=== PATIENT | female | born 1980 | race Caucasian/White ===

== ENCOUNTER → 2020-07-04 11:20 | Outpatient (CLI) | payer OTHER, SELFPAY ==
--- NOTE | ~2020-07-04 | US_ITS ---
EXAMINATION: US venous doppler [facility] DATE: 07/04/2020 11:40 INDICATION: Left lower limb pain TECHNIQUE: Grayscale ultrasound images without and with compression and Doppler ultrasound images of the left lower extremity veins were obtained. COMPARISON: None. FINDINGS: The visualized portions of left common femoral vein, profunda (deep) femoral vein, femoral vein, popl iteal vein, peroneal veins, posterior tibial veins, gastrocnemius vein and greater saphenous vein out flow are patent. IMPRESSION: 1. No deep venous thrombosis in the left lower limb. Reviewed, dictated and finalized at location A.
== END ==
PROVIDERS: Visit Provider Clinical Nurse Specialist
DX: M79.669 Pain in unspecified lower leg (principal)
CPT/HCPCS: 93971

== ENCOUNTER 2023-05-06 14:34 | Outpatient (CLI) | payer OTHER, SELFPAY ==
--- NOTE | ~2023-05-06 | MM_ITS ---
EXAMINATION: MM scrn tuan implant BI w camila HISTORY: Screening mammogram TECHNIQUE: Craniocaudal and mediolateral oblique 3-D tomosynthesis images with implant displacement a nd synthetic 2-D images were generated. Craniocaudal and mediolateral oblique views of the breasts wi thout implant displacement were obtained using full field digital mammography. CAD analysis was submi tted and interpreted. COMPARISON: 06/14/2016 diagnostic left mammogram and left breast ultrasound 06/09/2016 bilateral screening mammogram BREAST PARENCHYMAL COMPOSITION: The breasts are heterogeneously dense, which may obscure small masses . FINDINGS: Status post bilateral augmentation mammoplasty since 06/14/2016. There is no evidence of gaye picious mass, calcification, or architectural distortion to suggest malignancy in either breast. Ther e has been no suspicious interval change. IMPRESSION: 1. Status post bilateral augmentation mammoplasty since 06/14/2016. No mammographic evidence of malign jos. 2. Recommend routine screening mammography in one year. BI-RADS Category 1: Negative Reviewed, dictated and finalized at location A. IMPRESSION: 1. Status post bilateral augmentation mammoplasty since 06/14/2016. No mammograp hic evidence of malignancy. 2. Recommend routine screening mammography in one year. BI-RADS Category 1: Negative
--- NOTE | ~2023-05-06 | CT_ITS ---
EXAMINATION: CT sinus wo con DATE: 05/06/2023 15:38 INDICATION: Acute recurrent sinusitis TECHNIQUE: Computed tomography (CT) of the sinuses was performed without intravenous contrast. The do se-length product was 335.32 mGy-cm. COMPARISON: CT dated 03/27/2015 FINDINGS: The ostiomeatal units are patent. Small air-fluid level present left maxillary sinus. Minim al mucosal thickening right maxillary sinus. No mucoperiosteal reaction. Rightward nasal septal devia tion. Mastoids are pneumatized. IMPRESSION: 1. Mild maxillary sinus disease. Reviewed, dictated and finalized at location []
== END 2023-05-06 14:35 | disposition home or self-care (01) ==
PROVIDERS: PCP Internal Medicine; Visit Provider Obstetrics & Gynecology
DX: Z12.31 Encounter for screening mammogram for malignant neoplasm of breast (principal); J01.90 Acute sinusitis, unspecified
CPT/HCPCS: 70486; 77063; 77067

== ENCOUNTER 2024-05-02 08:48 | Day surgery (SDC) | payer OTHER, SELFPAY ==
[2024-05-02] VITALS (8 sets, daily range): BP systolic 109–124; BP diastolic 59–97; PULSE 56–87; RESP 14–22; TEMP 36.4–37; O2SAT 94–100
[2024-05-02] MEDS: SCOPOLAMINE 1 MG PATCH 1 PATCH TRANSDERM (09:43)
--- NOTE | 2024-05-02 09:48 | P.OP_ITS ---
Procedure Note - Detailed Date of Procedure 05/02/24 Pre-op Diagnosis Dermatochalasis Post-op Diagnosis Same Procedure Performed Bilateral lower eyelid transconjunctival blepharoplasty with fat grafting Surgeon Akhil Aranda MD Anesthesia General Findings Fat grafting: Tensed site central abdomen Right lower lid: 3 cc Left lower lid: 3 cc Description of Procedure Preoperatively risks, benefits, alternatives were discussed in extensive detail. I want them to be very realistic about the risks involved as well as expectations. Discussed what we can and cannot improved. Limitations of this procedure. Alternative procedure as well as adjuvant procedures. This was a lengthy open-ended conversation discussing realistic expectations of outcome. Answered all of their questions to their satisfaction. Consent obtained. Taken to the operating room placed supine on the operating room table. Anesthesia provided by anesthesiology. Prepped and draped in a standard sterile fashion. 1% lidocaine and 0.25% Marcaine with epinephrine was used anesthetize locally with low volume of local to protect from distortion of structures. Eyes were irrigated with BSS. Tetracaine eyedrops placed. Corneal protectors also placed. Fat grafting donor site was also prepped and draped in a standard sterile fashion. Stab incision was made and tumescent was utilized for hemostasis. Suction lipectomy was completed with hand lipo and placed for gravity separation. Needle-tip cautery was used to incise just inferior to the tarsus and a transconjunctival lower lid blepharoplasty technique. The conjunctiva was retracted with a 5-0 nylon. I elevated in a preseptal fashion down to the level of the rim. At this point I entered the nasal, middle, and lateral compartments and removed only what was clearly excess adiposity. I verified strict hemostasis throughout. I verified that the inferior oblique was protected during this procedure. With gentle pressure on the globe I verified the contour the lower lids. Both lids proceeded in the same manner. Retraction suture and corneal protectors were removed. Copious irrigated again with BSS solution. Only the central fat from the syringes were used. These were passed through tulip microfat grafting connectors t0 2.4 then 1.2 microns. 18 gauge needle utilized to make stab incisions. Fat infiltrated on tulip fat grafting cannulas in multiple plans and passes based on preoperative planning and intraoperative observation. Patient was woken taken the PACU without difficulty. All instrument sponge counts were correct at the end the case. Estimated Blood Loss 10 Drains No Packing No Pathology None sent Complications No immediate complications Condition Stable Disposition PACU
--- NOTE | 2024-05-02 09:48 | WPDHPUPDATE1 ---
History and Physical Update Update Date/Time: 05/02/24 09:48 History and Physical has been reviewed, including an updated exam of the patient. There are NO changes in the patient's condition. Risks, benefits, and alternatives have been discussed and questions answered. Patient agrees to proceed with procedure.
--- NOTE | 2024-05-02 10:12 | WPDANESEPPF ---
Anes - Initial Pre Proc Eval Procedure: Operation Date: 05/02/24 10:30 Proposed Procedures p Bilateral Lower Eyelid Blepharoplasty with Fat Grafting - Akhil Aranda MD Date/Time: 05/02/24 10:12 Surgeon: Akhil Aranda MD Pre Op Diagnosis: Dermatochalasis Patient Data Age: 43 Gender: F Height: 1.57 m Weight: 64.05 kg Last Vital Signs Temp 37.0 C 05/02/24 09:25 Pulse 71 05/02/24 09:25 Resp 15 05/02/24 09:25 BP 111/59 L 05/02/24 09:25 Pulse Ox 99 05/02/24 09:25 O2 Del Method Room Air 05/02/24 09:25 Allergies Allergy/AdvReac Type Severity Reaction Status Date / Time No Known Allergies Allergy Verified 05/02/24 09:11 Home Medications Medication Instructions Recorded Confirmed Type hydrochlorothiazide 25 mg tablet 25 mg PO DAILY #30 tabs 09/01/23 05/02/24 Rx meloxicam 15 mg tablet 15 mg PO PRN PRN Muscle Pain 04/23/24 05/02/24 History semaglutide (weight loss) 0.5 0.5 mg (0.5 mL) subcut WEEKLY #2 mL 04/23/24 05/02/24 Rx mg/0.5 mL subcutaneous pen injector (Wegovy) Patient hx anesthesia problems: none Family hx anesthesia problems: none Results Review: All pre-operative results and documents have been reviewed as part of the pre-operative evaluation. [facility] Past Medical History Medical History Abnormal Pap smear of cervix 2008- 2009 Asthma Gestational hypertension Meniere disease Ovarian cyst 2010 Screening mammogram for breast cancer 06-09-2016 additional imaging of left breast - asymmetry on left breast- Dx mammogram - wnl Screening mammogram for breast cancer Surgical History Surgical History Delivery by section 03/16/12 primary c/s--severe PIH H/O sinus surgery 02/03/16 balloon sinuplasty History of colposcopy with cervical biopsy benign 10/28/08 benign Hx of breast implants, bilateral 09/11/16 Family History Family History Mother Breast cancer Father Diabetes mellitus Social History Social History Smoking status: Never smoker Second hand tobacco smoke exposure: No Alcohol intake: current Alcohol use details: occasional Substance use: current Substance use type: does not use Lack of Transportation: No Lack of Food: Never True Current Housing: I Have Housing Concerned About Future Housing: No Difficulty Paying Gas/Electric Bills: No Currently Unemployed: No Education: Master's Degree or Higher Difficulty w/ Childcare or Family Care: No Living arrangements: with family Occupation/Education: occupation Gender identity (if verbalized by the patient): Female Spiritual care concerns: No Anes - Eval Final PreProcedure Day of Procedure 05/02/24 10:12 Patient weight: normal Heart: regular rate and rhythm Lungs: clear to auscultation Airway: Mallampati scale class 1 Neurological: alert and oriented Last oral intake: >/= 8 hours ASA classification: I Emergent: no Anesthetic plan: proceed Anesthesia type and monitoring: general LMA and standard monitoring Results Review: All pre-operative results and documents have been reviewed as part of the pre-operative evaluation. Informed Consent: The patient's anesthetic plan and its attendant risks and benefits were discussed with the patient/family/POA. Questions were solicited and answers provided to the satisfaction of the patient/family/POA.
[2024-05-02] MEDS: LACTATED RINGERS 1,000 ML 30 ML IV CONT ×2 (10:23→12:17)
[2024-05-02] MEDS: ceFAZolin SODIUM 2 GM/20 ML SW SYRINGE IV PUSH (10:29)
[2024-05-02] MEDS: LIDO 1%/EPINEPHRINE 1:100,000 20 ML VIAL 5 ML INFILTRATE (12:08)
[2024-05-02] MEDS: fentaNYL CITRATE INJ (*CRX) 100 MCG/2 ML VIAL 25 MCG IV PUSH ×3 (12:21→12:45)
--- NOTE | 2024-05-02 13:08 | WPDANESPN ---
Anes - Prog Note Post-Op Date/Time: 05/02/24 13:08 Cardiovascular status: normal Respiratory status: normal Airway patency: baseline Mental status: baseline Post-Op hydration status: normal Vital Signs: Last Vital Signs Temp 36.4 C 05/02/24 12:05 Pulse 57 L 05/02/24 12:57 Resp 16 05/02/24 12:57 BP 123/68 05/02/24 12:57 Pulse Ox 95 05/02/24 12:57 O2 Del Method Room Air 05/02/24 12:57 O2 Flow Rate 6 05/02/24 12:20 Pain Score (VAS): 2/10 Patient Feedback: Patient satisfied with anesthetic care.
[2024-05-02] MEDS: oxyCODONE HCL (*CRX) 5 MG TAB IR PO (13:15)
== END 2024-05-02 12:57 | disposition home or self-care (01) ==
PROVIDERS: PCP Clinical Nurse Specialist; Visit Provider Surgery Plastic and Reconstructive Surgery
PROC: (CPT 15820; principal; 2024-05-02 10:30)
DX: H02.835 Dermatochalasis of left lower eyelid (principal); H02.832 Dermatochalasis of right lower eyelid
CPT/HCPCS: 15820

== ENCOUNTER 2024-09-07 10:46 | Outpatient (CLI) | payer OTHER, SELFPAY ==
--- NOTE | ~2024-09-07 | MR_ITS ---
MRI of the right ankle/hindfoot Clinical history: Plantar fasciitis Technique: Coronal proton-density and proton-density fat-sat images, axial proton-density and proton- density fat-sat images, and sagittal proton-density and proton-density fat-sat images were acquired. Findings: Syndesmotic ligaments are intact. Anterior and posterior talofibular ligaments, and calcane ofibular ligament are intact. Deltoid ligament is intact. Medial flexor tendons, peroneal tendons, anterior extensor tendons, and Achilles tendon are intact. There is no osteochondral lesion of the talar dome. Bone marrow signals and joint spaces are intact. No joint effusion. There is mild soft tissue edema about the proximal aspect of the plantar fascia, which is minimally t hickened and hyperintense. Plantar calcaneal spur noted. No soft tissue mass or fluid collection seen otherwise. Impression: Mild plantar fasciitis, as detailed above. Reviewed, dictated and finalized at [facility]. Impression: Mild plantar fasciitis, as detailed above.
== END 2024-09-07 10:47 | disposition home or self-care (01) ==
PROVIDERS: PCP Podiatrist Foot & Ankle Surgery; Visit Provider Podiatrist Foot & Ankle Surgery
DX: M72.2 Plantar fascial fibromatosis (principal)
CPT/HCPCS: 73718

== ENCOUNTER 2025-01-04 14:20 | Outpatient (CLI) | payer OTHER, SELFPAY ==
--- NOTE | ~2025-01-04 | MM_ITS ---
CORRECTED REPORT corrected examination description [facility] 01/07/25 This report was recreated on 01/07/25. Original report was ANICAL ENGINEERING DIRECTOR EXAMINATION: MM screening mammo implant BI w camila HISTORY: Screening mammogram TECHNIQUE: Craniocaudal and mediolateral oblique 3-D tomosynthesis images with implant displacement and synthetic 2-D images were generated. Craniocaudal and mediolateral oblique views of the breasts without implant displacement were obtained using full field digital mammography. CAD analysis was submitted and interpreted. COMPARISON: Comparison to multiple prior studies sequentially, with oldest reviewed study dated 06/09/2016. BREAST PARENCHYMAL COMPOSITION: Dense: The breasts are heterogeneously dense, which may obscure small masses FINDINGS: There is no evidence of suspicious mass, calcification, or architectural distortion to suggest malignancy in either breast. There has been no suspicious interval change. IMPRESSION: 1. No mammographic evidence of malignancy. 2. Recommend routine screening mammography in one year. BI-RADS Category 1: Negative Reviewed, dictated and finalized at location B. ANICAL ENGINEERING DIRECTOR MTDD
--- OUTSIDE RECORDS SUMMARY | 2025-01-04 14:22 | XMS_ITS | Referral Summary ---
Author Organization [facility] [employer] Address [address] [place] [address] Care Team Providers Care Transmitter Tester Name Role Phone Yakov Yan DO Primary Care Provider Source Comments [facility],non-[facility] Affiliates and Associated Physician Practices is amultiple site organization consisting of ambulatory clinics and hospital sitesin [place], [place] and [place]. This disclosure is being madepursuant to the Care Everywhere program and may not contain all information available regarding this patient. Last updated 18.[facility] [employer] Allergies No known active allergies Medications * Be aware that medications may not be up to date on this document. Alwaysverify current medications with the patient. Medication Sig Dispensed Refills Start Date End Date Status montelukast (SINGULAIR) 10 MG tablet Take 10 mg by mouth at bedtime Active hydrochlorothiazide (HYDRODIURIL) 25 MG tablet Take 25 mg by mouth once daily Active fluticasone-vilanterol (BREO ELLIPTA) 100-25 MCG/INH inhaler Active OREGANO PO Active PEPPERMINT OIL PO Active Active Problems Problem Noted Date Diagnosed Date Abdominal bloating 07/22/2017 Meniere disease 07/22/2017 Social History Tobacco Use Types Packs/Day Years Used Date Smoking Tobacco: Former Cigarettes Q uit: 07/22/2011 Smokeless Tobacco: Never Alcohol Use Standard Drinks/Week Comments Yes 4.2 (1 standard drink = 0.6 oz p ure alcohol) Sex and Gender Information Value Date Recorded Sex Assigned at Not on file Gender Identity Not on file Sexual Orientation Not on file Last Filed Vital Signs Vital Sign Reading Time Taken Comments Blood Pressure 106/70 09/11/2019 1:49 PM CDT Pulse 84 07/22/2017 1:04 PM CDT Temperature 36.7 C (98.1 F) 07/22/2017 1:04 PM CDT Respiratory Rate 18 07/22/2017 1:04 PM CDT Oxygen Saturation 98% 01/03/2018 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 No 06/19/2015 Is person blind or have serious difficulty seein g? No 06/19/2015 Does person have serious dif ficulty walking/climbing stairs? No 06/19/2015 Does person have difficulty dressing/bathing? No 06/19/2015 Does person have difficulty doing errands alone? No 06/19/2015 Cognitive Status Response Date of Assessm ent Does person have difficulty concentrating/remembering/making decisions? No 06/19/2015 Plan of Treatment Not on file Care Teams Transmitter Tester Relationship Specialty Start Date End Date Yakov Yan DO PCP - General Internal Medicine 06/19/15
--- OUTSIDE RECORDS SUMMARY | 2025-01-04 14:22 | XMS_ITS | Patient Health Summary ---
Author Organization [facility] Address [address] [place] [address] Care Team Providers Care Classroom Monitor Name Role Phone Yakov Yan DO Primary Care Provider Note from [facility],non-owned Affiliates and Associated Physician Practices is amultiple site organization consisting of ambulatory clinics and hospital sitesin [place], [place], [place] and [place]. This disclosure is being madepursuant to the Care Everywhere program and may not contain all information available regarding this patient. Last updated 18.[facility] Allergies No known active allergies Medications * Be aware that medications may not be up to date on this document. Alwaysverify current medications with the patient. * montelukast (SINGULAIR) 10 MG tablet Take 10 mg by mouth at bedtime * hydrochlorothiazide (HYDRODIURIL) 25 MG tablet Take 25 mg by mouth once daily * fluticasone-vilanterol (BREO ELLIPTA) 100-25 MCG/INH inhaler * OREGANO PO * PEPPERMINT OIL PO Active Problems Problem Noted Date Diagnosed Date [...] CDT Oxygen Saturation 98% 01/03/2018 1:15 PM QUALITY AND RELIABILITY ENGINEER Inhaled Oxygen Concentration - - Weight 60.3 kg (133 lb) 09/11/2019 1:49 PM CDT Height 157.5 cm (5' 2 ) 09/11/2019 1:49 PM CDT Body Mass Index 24.33 09/11/2019 1:49 PM CDT Procedures * CALPROTECTIN FECAL(Performed 01/11/2018) * C-REACTIVE PROTEIN(Performed 01/03/2018) * ERYTHROCYTE SEDIMENTATION RATE(Performed 01/03/2018) * BREATH HYDROGEN/METHANE TEST(Performed 06/19/2015) Performed for Abdominal pain, unspecified abdominal location, Flatulence, Abdominal bloating Results * CALPROTECTIN FECAL (01/11/2018 8:44 AM QUALITY AND RELIABILITY ENGINEER) Calprotectin Fecal <15.6 < OR = 162.9 mcg/g [facility] ([facility]) Comment: REPORT COMMENT: SPLIT 01/03/2018 FROM [id number] FASTING:NO Test Performed at: [facility] [id number] [place] [address] JOSE ORONA MD,PHD,DHRUV Stool specimen (specimen) STOOL SPECIMEN / Unknown 01/11/2018 8:44 AM QUALITY AND RELIABILITY ENGINEER 01/12/2018 5:05 AM QUALITY AND RELIABILITY ENGINEER Paola Ornelas MD LAB - BODY FLUID ORDERABLES [facility] [address] * C-REACTIVE PROTEIN (01/03/2018 1:42 PM QUALITY AND RELIABILITY ENGINEER) C-Reactive Protein 1.0 <8.0 mg/L [facility] ([facility]) Comment: REPORT COMMENT: FASTING:NO COLLECTION KIT GIVEN TO PATIENT. PATIENT ADVISED TO RETURN. Test Performed at: [facility] [address] [facility] [place] [address] SETH ORELLANA DO,MPH Blood specimen (specimen) BLOOD SPECIMEN / Unknown 01/03/2018 1:42 PM QUALITY AND RELIABILITY ENGINEER 01/03/2018 1:43 PM QUALITY AND RELIABILITY ENGINEER Paola Ornelas MD LAB - CHEMISTRY O RDERABLES Performing Organization Address City/[facility]/ZIP Co de Phone Number [facility] [address] * ERYTHROCYTE SEDIMENTATION RATE (01/03/2018 1:42 PM QUALITY AND RELIABILITY ENGINEER) Erythrocyte Sedimentation Rate Westergren 2 < OR = 20 mm/h [facility] ([facility]) Comment: Test Performed at: [facility] [id number] [address] [facility] [place] [address] SETH ORELLANA DO,MPH Blood specimen (specimen) BLOOD SPECIMEN / Unknown 01/03/2018 1:42 PM QUALITY AND RELIABILITY ENGINEER 01/03/2018 1:43 PM QUALITY AND RELIABILITY ENGINEER Paola Ornelas MD LAB - HEMATOLOGY ORDERABLES Performing Organization Address [facility] Co de Phone Number [facility] ([facility]) [address] Care Teams Classroom Monitor Relationship Specialty Start Date End Date Yakov Yan DO PCP - General Internal Medicine 06/19/15
--- OUTSIDE RECORDS SUMMARY | 2025-01-04 14:22 | XMS_ITS | Clinical Summary ---
Author Organization [facility] Address [address] [place] [address] Care Team Providers Care Chief Innovation Officer Name Role Phone BetiYakov reynolds Kayla DO Primary Care Provider [phone] Scotty Gomes MD Unavailable Allergies No known active allergies Medications hydroCHLOROthia zide (HYDRODIURIL) 25 MG tablet Take 1 tablet (25 mg total) by mouth daily. Active albuterol sulfate HFA 108 (90 Base) MCG/ACT inhaler Inhale 2 puffs into the lungs every 4 (four) hours as needed for Wheezing or Shortness of breath. Active azelastine (ASTELIN) 0.1 % nasal spray 1 spray by Nasal route 2 (two) times daily. Use in each nostril as directed Active Multiple Vitamin (MULTIVITAMIN ADULT OR) Take 1 tablet by mouth daily. Active ELDERBERRY OR Take 1 tablet by mouth daily. Active meloxicam (MOBIC) 15 MG tablet Take 1 tablet (15 mg total) by mouth daily. Active Active Problems Problem Noted Date Diagnosed Date Sensorineural hearing loss (SNHL) of left ear Social History Tobacco Use Types Packs/Day Years Used Date Smoking Tobacco: Former Cigarettes 0.3 15 S tarted: 2000 Smokeless Tobacco: Never Tobacco Cessation:Counseling Given: Not Answered Comments:Smoked a few cigarettes per day off/on for about 15 years. Alcohol Use Standard Drinks/Week Comments Yes 1.7 (1 standard drink = 0.6 oz p ure alcohol) Comments No Sex and Gender Information Value Date Recorded Sex Assigned at Not on file Legal Sex Female 2:54 PM CDT Gender Identity Not on file Sexual Orientation Not on file Last Filed Vital Signs Vital Sign Reading Time Taken Comments Blood Pressure 139/70 03/06/2024 12:05 PM CDT Pulse 72 03/06/2024 12:05 PM CDT Temperature 36.7 C (98 F) 03/06/2024 12:05 PM CDT Respiratory Rate 16 03/06/2024 12:0 5 PM CDT Oxygen Saturation 99% 03/06/2024 12: 05 PM CDT Inhaled Oxygen Concentration - - Weight 66.2 kg (145 lb 15.1 oz) 03/06/2024 7:40 AM CDT Height 154.9 cm (5' 1 ) 03/06/2024 7:40 AM CDT Body Mass Index 27.58 03/06/2024 7:40 AM CDT Plan of Treatment Health Maintenance Due Date Last Done Comments Cervical Cancer Screening Pa p Smear (Age 30 to 64) Every 3 Years 1982 Annual Physical 1985 Hepatitis C 2000 DTaP, Tdap and Td Vaccines ( 1 - Tdap) 2001 Hepatitis B Vaccines (1 of 3 - 19+ 3-dose series) 2001 Cervical Cancer Screening Pa p with HPV Testing (Age 30 to 64) Every 5 Years 2012 Cervical Cancer Screening [facility] HPV 2012 Mammogram Screening 2022 COVID-19 Vaccine ( - 2023-2 5 season) 2024 12/15/2021, 02/06/2021, 01/16/2021 Influenza Adult (#1) 2024 09/13/2019, 09/25/2018 HPV Vaccines Aged Out No longer eligi ble based on patient's age to complete this topic Meningococcal B Vaccine Aged Out No l onger eligible based on patient's age to complete this topic Meningococcal Vaccine Aged Out No lonnie lauri eligible based on patient's age to complete this topic Pneumococcal Vaccine: Pediatrics (0 to 5 Years) and At-Risk Patients (6 to 64 Years) Aged Out No longer eligible b ased on patient's age to complete this topic RSV Immunizations Under 20 Months Aged Out No longer eligible b ased on patient's age to complete this topic Insurance [employer] Care Teams Chief Innovation Officer Relationship Specialty Start Date End Date Yakov Yan DO [address] [place], [place] [id number] PCP - General INTERNAL MEDICINE 02/27/24 Scotty Gomes MD [address] [place] [address] PULMONARY DISEASE 02/27/24
--- OUTSIDE RECORDS SUMMARY | 2025-01-04 14:22 | XMS_ITS | Clinical Summary ---
Author Organization [facility] [employer] Address [address] [place] [address] Care Team Providers Care Igniter Assembler Name Role Phone Yakov Yan DO Primary Care Provider [phone] Source Comments [facility],non-owned Affiliates and Associated Physician Practices is amultiple site organization consisting of ambulatory clinics and hospital sitesin [place], [place], [place] and [place]. This disclosure is being madepursuant to the Care Everywhere program and may not contain all information available regarding this patient. Last updated 18.[facility] [employer] Allergies No known active allergies Medications * [...] Date Abdominal bloating 07/22/2017 Meniere disease 07/22/2017 Family History Medical History Relation Name Comments Diabetes Father Cancer Mother breast Relation Name Status Comments Father Mother Social History Tobacco Use Types Packs/Day Years [...] CDT Oxygen Saturation 98% 01/03/2018 1:15 PM KITCHEN FOOD SERVER Inhaled Oxygen Concentration - - Weight 60.3 kg (133 lb) 09/11/2019 1:49 PM CDT Height 157.5 cm (5' 2 ) 09/11/2019 1:49 PM CDT Body Mass Index 24.33 09/11/2019 1:49 PM CDT Plan of Treatment Health Maintenance Due Date Last Done Comments LIPID TESTING 1982 MAMMOGRAM 1982 PAP SMEAR 1982 HIV SCREENING 1997 HEPATITIS C SCREENING 10/28/2000 DTAP/TDAP/TD VACCINES (1 - Tdap) 2001 HEPATITIS B VACCINE (1 of 3 - 19+ 3-dose series) 2001 COVID-19 VACCINE ( - 2023-2 5 season) 2024 INFLUENZA VACCINE (#1) 2024 DEPRESSION SCREENING 11/21/2024 ZOSTER VACCINE (1 of 2) 2032 HIB VACCINE Aged Out No longer eligi ble based on patient's age to complete this topic HPV VACCINE Aged Out No longer eligi ble based on patient's age to complete this topic MENINGOCOCCAL (Group B) VACCINE Aged Out No longer eligible based on patient's age to complete this topic MENINGOCOCCAL VACCINE Aged Out No lonnie lauri eligible based on patient's age to complete this topic PNEUMOCOCCAL VACCINE Aged Out No long er eligible based on patient's age to complete this topic Care Teams Igniter Assembler Relationship Specialty Start Date End Date Yakov Yan DO PCP - General Internal Medicine 06/19/15
--- OUTSIDE RECORDS SUMMARY | 2025-01-04 14:22 | XMS_ITS | Clinical Summary ---
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[employer] Name Role Phone Yakov Yan DO Primary Care Provider [phone] Ozzie Gomes MD Unavailable [phone] Allergies No known active allergies Medications montelukast (SINGULAIR) 10 mg tablet Take 10 mg by mouth nightly Active fluticasone furoate-vilante rol (BREO ELLIPTA) 100-25 mcg/dose diskus inhaler Inhale Active albuterol HFA (PROVENTIL HFA,VENTOLIN HFA,PROAIR HFA) 90 mcg/actuation inhaler INHALE 2 PUFFS BY MOUTH EVERY 4 HOURS NEEDED FOR SHORTNESS OF BREATH 1 Active hydroCHLOROthia zide (HYDRODIURIL) 25 mg tablet Take 1 tablet (25 mg total) by mouth daily 90 tablet 3 2 Active Active Problems Problem Noted Date Diagnosed Date Sensorineural hearing loss (SNHL) of left ear Positive KENYATTA (antinuclear antibody) 04/21/2023 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 She does use a space heater on the L side of the floor under her desk at work, so we suspect the rash is erythema ab igne from chronic heat exposure, as opposed to a vasculitic process or livedo reticularis. Recommend seeing derm for opinion, but she likely does not need a biopsy unless the diagnosis is still in question. Advised cessation of use of space heater and the appearance of skin may improve. As she has a +KENYATTA (first noted in 2015 at low titer of 1:80, now at higher titer of 1:640 with nucleolar pattern), we checked ANCA panel and APS antibodies to r/o other underlying cause of a reticular/vascular rash like this, and these panels were both negative. She does have +FH of RA/SpA/uveitis in mother/sister, though she does not have many other symptoms (just plantar fasciitis) that would raise the concern for an inflammatory arthritis at this time. Since last visit she has stopped using space heater and feels that he rash on her leg is improving. At this point we do not see clinical features of CTD, but can certainly re-evaluate in the future if things change. Answered all of her questions and she may follow up as needed. Discussed with Dr. Ramirez. Assessment & Plan (04/21/2023 6:02 PM CDT): Reticular erythematous/hyperpigmented skin in a very localized portion of L lateral calf. She does use a space heater on the L side of the floor under her desk at work, so we suspect the rash is erythema ab igne from chronic heat exposure, as opposed to a vasculitic process or livedo reticularis. Recommend seeing derm for opinion, but she likely does not need a biopsy unless the diagnosis is still in question. Advised cessation of use of space heater and the appearance of skin may improve. As she has a +KENYATTA (first noted in 2016 at low titer of 1:80, now at higher titer of 1:640 with nucleolar pattern), we will go ahead and check ANCA panel and APS antibodies to r/o other underlying cause of a reticular/vascular rash like this. She does have +FH of RA/SpA/uveitis in mother/sister, though she does not have many other symptoms (just plantar fasciitis) that would raise the concern for an inflammatory arthritis at this time. F/u 2 weeks to go over results. Seen with Dr. Ramirez Plantar fasciitis 04/21/2023 Abdominal bloating 07/22/2017 Meniere disease 07/22/2017 Surgical History Surgery Date Site/Laterality Comments SECTION c section MI UNLISTED PROCEDURE BREAST Breast Surgery - (Added by TW Conv) Medical History Medical History Date Comments Anxiety disorder Anxiety - (Adde d by TW Conv) Personal history of other di seases of the respiratory system History of sinusitis - (Adde d by TW Conv) Family History Medical History Relation Name Comments Breast cancer Mother Family history of malignant neoplasm of breast - (Added by TW Conv) Breast cancer Other Family history of Cancer, breast; Rheum arthritis Other Family histo ry of Rheumatoid arthritis; Relation Name Status Comments Mother Other Social History Tobacco Use Types Packs/Day Years Used Date Smoking Tobacco: Never Comments Unknown Sex and Gender Information Value Date Recorded Sex Assigned at Not on file 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 Gender Identity Not on file Sexual Orientation Not on file Obstetrics History Last Filed Vital Signs Vital Sign Reading Time Taken Comments Blood Pressure 120/82 04/21/2023 11:13 AM CDT Pulse 75 04/21/2023 11:13 AM CDT Temperature - - Respiratory Rate - - Oxygen Saturation 98% 04/21/2023 11:13 AM CDT Inhaled Oxygen Concentration - - Weight 65.3 kg (144 lb) 04/21/2023 11:13 AM CDT Height 156.2 cm (5' 1.5 ) 04/21/2023 11:13 AM CD T Body Mass Index 26.77 04/21/2023 11:13 AM CDT Plan of Treatment Health Maintenance Due Date Last Done Comments Breast Cancer Screening-Mammogram 1982 Cervical Cancer Screening 1982 Depression Screening 1982 Hepatitis C Screening 1982 DTaP/Tdap/Td Vaccine (1 - Tdap) 1993 Varicella Vaccines (1 of 2 - 13+ 2-dose series) 1995 Hepatitis B Screening 2000 Regular Well Visit/Exam 18-64 2000 Influenza Vaccine (#1) 2024 9, 09/25/2018 HPV Vaccines Aged Out No longer eligi ble based on patient's age to complete this topic Pneumococcal vaccine <65 Aged Out No longer eligible based on patient's age to complete this topic Insurance [facility] H[facility]/PPO Address: [address] [address] [place] [address] [facility] OPEN ACCESS Care Teams Supervisor [employer] Relationship Specialty Start Date End Date Yakov Yan DO PCP - General 08/10/16 Ozzie Gomes MD Referring Physician Otolaryngology 12/04/20
--- OUTSIDE RECORDS SUMMARY | 2025-01-04 14:22 | XMS_ITS | Referral Summary ---
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
== END 2025-01-04 14:21 | disposition home or self-care (01) ==
LOC: ANHIMG 14:21
PROVIDERS: PCP Clinical Nurse Specialist; Visit Provider Obstetrics & Gynecology
DX: Z12.31 Encounter for screening mammogram for malignant neoplasm of breast (principal)
CPT/HCPCS: 77063; 77067